=== PATIENT | male | born 1990 | race Hispanic/Latino ===

== ENCOUNTER 2022-10-27 08:27 | Emergency (ER) | payer OTHER, SELFPAY ==
[2022-10-27 08:43] VITALS: BP 139/82; PULSE 117; RESP 18; TEMP 37.6; O2SAT 97
--- NOTE | 2022-10-27 08:47 | ED.URI ---
HPI - URI/Sore Throat General Chief Complaint: Upper Respiratory Infection Stated Complaint: cold cough w/asthma Time Seen by Provider: 10/27/22 08:49 Source: patient and RN notes reviewed Mode of arrival: ambulatory Limitations: no limitations History of Present Illness HPI Narrative: 31-year-old male with history of asthma presented for complaint of sinus pressure/congestion, cough, onset 2 days. He endorses sick family members with fevers, but and she was illness. He denies shortness of breath, wheezing, nausea, vomiting, diarrhea, fevers or chills. He is taking multiple ysff-tbp-pxocjkh medications for symptoms. He has been vaccinated twice for COVID. MD elicited complaint: cough Related Data Allergies Allergy/AdvReac Type Severity Reaction Status Date / Time No Known Allergies Allergy Unverified 01/20/18 16:47 Review of Systems Review of Systems: per HPI Exam Narrative: GENERAL: Ill-appearing, nontoxic EYES: PERRLA, conjunctivae clear ENT: Mucous membranes moist. TMs pearly elizabeth with dull light reflex bilaterally; no tragal tenderness. CHEST: Clear to auscultation, breath sounds equal. No wheezing, rhonchi, rales, or stridor. No respiratory distress, speaks in full sentences. HEART: Regular rate and rhythm. No murmur heard. SKIN: Warm, dry, no rash. NEURO: Alert and oriented x3. PSYCH: Normal mood and affect Course Course Emergency Course: Patient is aware of diagnosis, understands and agrees to treatment plan. Anticipatory guidance given. Patient agrees to follow-up as directed and is aware of reasons to seek care at the emergency department. Portions of this record may have been created with voice recognition software Level of Care: Express Care Visit Vital Signs Vital signs: Vital Signs Temperature 99.6 F 10/27/22 08:43 Pulse Rate 117 H 10/27/22 08:43 Respiratory Rate 18 10/27/22 08:43 Blood Pressure 139/82 10/27/22 08:43 Pulse Oximetry 97 10/27/22 08:43 Oxygen Delivery Room Air 10/27/22 08:43 Temperature 99.6 F 10/27/22 08:43 Pulse Rate 117 H 10/27/22 08:43 Respiratory Rate 18 10/27/22 08:43 Blood Pressure 139/82 10/27/22 08:43 Pulse Oximetry 97 10/27/22 08:43 Oxygen Delivery Room Air 10/27/22 08:43 reviewed MDM - URI/Sore Throat MDM Narrative Medical decision making narrative: Covid result reviewed with pt and mother. Advised supportive measures and signs/symptoms to go to the ER. Pt is appropriate for outpt treatment and f/u. Differential Diagnosis Differential diagnosis: Likely upper respiratory infection, sinusitis and viral infection Discharge Plan Discharge Clinical Impression: Viral infection Patient Disposition: Home, Self-Care Condition: Stable Instructions: Viral Syndrome (ED) Additional Instructions: You should avoid crowds until you are fever free for 24 hours without the use of fever reducing medications, or the symptoms are improved Rest. Drink plenty of fluids. Tylenol 1000mg every 8 hours as needed for pain/fever Recommend Flonase spray and Zyrtec (or Claritin/Celia) for sinus pressure/congestion over the counter Cough syrup may cause drowsiness; avoid driving or take it at night time. Follow up with your primary care provider as needed in 1-2 weeks Go to the ER for worsening symptoms or concerns Follow-up/Referrals: Radha,MD Mario [Primary Care Provider] - Time of Disposition: 09:15
== END 2022-10-27 09:18 | disposition home or self-care (01) ==
PROVIDERS: Emergency Provider Nurse Practitioner Family; PCP Internal Medicine
DX: B34.9 Viral infection, unspecified (principal); Z20.822 Contact with and (suspected) exposure to COVID-19
CPT/HCPCS: 87426; 99203; C9803; G0463

== ENCOUNTER 2022-12-31 09:04 | Emergency (ER) | payer OTHER, SELFPAY ==
[2022-12-31 09:17] VITALS: BP 142/79; PULSE 104; RESP 18; TEMP 37.1; O2SAT 99
--- NOTE | 2022-12-31 09:19 | ED.URI ---
HPI - URI/Sore Throat General Chief Complaint: Upper Respiratory Infection Stated Complaint: Sore Throat Time Seen by Provider: 12/31/22 09:35 Source: patient and RN notes reviewed Mode of arrival: ambulatory Limitations: no limitations History of Present Illness HPI Narrative: 32-year-old male presents concern for source of this started this morning. Reports he was clearing his throat a lot last night. He denies taking any ycqf-oks-wsdqkac medications for his symptoms. He denies cough, fever, chills, aches, headache, stomachache. Reports his parents both have similar symptoms MD elicited complaint: sore throat Related Data Home Medications Medication Instructions Recorded Confirmed albuterol sulfate 90 mcg/actuation 2 puff inhalation Q4-6H PRN 10/27/22 10/27/22 aerosol inhaler Shortness Of Breath famotidine 20 mg tablet 20 mg PO BID 10/27/22 12/31/22 levothyroxine 125 mcg tablet 125 mcg PO DAILY 10/27/22 12/31/22 budesonide-formoterol HFA 80 80 puff inhalation BID PRN Wheezing 12/31/22 12/31/22 mcg-4.5 mcg/actuation aerosol inhaler (Symbicort) Allergies Allergy/AdvReac Type Severity Reaction Status Date / Time No Known Allergies Allergy Verified 12/31/22 09:24 Review of Systems Review of Systems: CONSTITUTIONAL: Reports malaise. Denies chills, sweats, or fever. EYES: Denies visual changes, redness, or discharge. ENT: Denies rhinorrhea, congestion, sinus pain, otalgia. Reports sore throat. CARDIOVASCULAR: Denies chest pain, palpitations, or edema. RESPIRATORY: Denies cough. Denies dyspnea. GASTROINTESTINAL: Denies abdominal pain, nausea, vomiting, diarrhea SKIN: Denies rash or itching. MUSCULOSKELETAL: Denies myalgia. NEUROLOGIC: Denies headache. All systems reviewed & are unremarkable except as noted in HPI and below PMFSH Comments At time of signature, agree with nursing past medical, surgical, social and family history. There is no relevant family history pertinent to the presenting complaint Exam Narrative: GENERAL: Well-appearing, well-nourished, and in no acute distress. HEAD: Normocephalic EYES: PERRLA, conjunctivae clear ENT: Nares clear, clear discharge. Mucous membranes moist. TM pearly elizabeth with dull light reflex bilaterally; no tragal tenderness. Oropharynx not erythematous without lesions. Tonsils enlarged and without exudate, no drooling, no hoarseness, no trismus, uvula midline. NECK: Supple. No lymphadenopathy CHEST: Clear to auscultation, breath sounds equal. No wheezing, rhonchi, rales, or stridor. No respiratory distress, speaks in full sentences. HEART: Regular rate and rhythm. No murmur heard. SKIN: Warm, dry, no rash. NEURO: Alert and oriented x3. PSYCH: Normal mood and affect Course Course Emergency Course: Patient is aware of diagnosis, understands and agrees to treatment plan. Anticipatory guidance given. Patient agrees to follow-up as directed and is aware of reasons to seek care at the emergency department. Portions of this record may have been created with voice recognition software Level of Care: Express Care Visit Vital Signs Vital signs: Vital Signs Temperature 98.7 F 12/31/22 09:17 Pulse Rate 104 H 12/31/22 09:17 Respiratory Rate 18 12/31/22 09:17 Blood Pressure 142/79 H 12/31/22 09:17 Pulse Oximetry 99 12/31/22 09:17 Oxygen Delivery Room Air 12/31/22 09:17 Temperature 98.7 F 12/31/22 09:17 Pulse Rate 104 H 12/31/22 09:17 Respiratory Rate 18 12/31/22 09:17 Blood Pressure 142/79 H 12/31/22 09:17 Pulse Oximetry 99 12/31/22 09:17 Oxygen Delivery Room Air 12/31/22 09:17 Reviewed. MDM - URI/Sore Throat MDM Narrative Medical decision making narrative: Differential diagnosis considered: [place] virus, strep pharyngitis, allergic rhinitis, upper respiratory tract infection, sinusitis, rhinosinusitis, nasopharyngitis. viral pharyngitis, otitis media, otitis externa, pneumonia, bronchitis, viral cough syndrome, viral syn
== END 2022-12-31 10:03 | disposition home or self-care (01) ==
PROVIDERS: Emergency Provider Nurse Practitioner
DX: J02.0 Streptococcal pharyngitis (principal); Z20.822 Contact with and (suspected) exposure to COVID-19; E78.00 Pure hypercholesterolemia, unspecified; J45.909 Unspecified asthma, uncomplicated; K21.9 Gastro-esophageal reflux disease without esophagitis; E03.9 Hypothyroidism, unspecified
CPT/HCPCS: 87426; 87880; 99213; C9803; G0463

== ENCOUNTER 2023-07-14 11:03 | Emergency (ER) | payer OTHER, SELFPAY ==
[2023-07-14 11:09] VITALS: BP 138/79; PULSE 94; RESP 16; TEMP 36.6; O2SAT 98
--- NOTE | 2023-07-14 11:46 | ED.UPPEXIN ---
HPI - Extremity Injury (Upper) General Chief Complaint: Extremity Injury, Upper Stated Complaint: Right Arm Pain Time Seen by Provider: 07/14/23 11:46 Source: patient and RN notes reviewed Mode of arrival: ambulatory Limitations: no limitations History of Present Illness HPI narrative: 32-year-old male presents with concern for right shoulder pain. Reports pain started Wednesday after he was carrying laundry on Wednesday. He reports little pain at rest, worsening pain with range of motion. He denies taking any deiq-asn-bqxwkqz medications for his symptoms. He denies decreased strength, sensation. Reports difficulty raising the arm above shoulder level. He denies redness, warmth, bruising, open skin MD complaint: injury to: right and shoulder Related Data Home Medications Medication Instructions Recorded Confirmed albuterol sulfate 90 mcg/actuation 2 puff inhalation Q4-6H PRN 10/27/22 07/14/23 aerosol inhaler Shortness Of Breath famotidine 20 mg tablet 20 mg PO BID 10/27/22 07/14/23 levothyroxine 125 mcg tablet 125 mcg PO DAILY 10/27/22 07/14/23 budesonide-formoterol HFA 80 80 puff inhalation BID PRN Wheezing 12/31/22 07/14/23 mcg-4.5 mcg/actuation aerosol inhaler (Symbicort) montelukast 10 mg tablet 10 mg PO QPM 07/14/23 07/14/23 Allergies Allergy/AdvReac Type Severity Reaction Status Date / Time No Known Allergies Allergy Verified 07/14/23 11:28 Review of Systems Review of Systems: CONSTITUTIONAL: Denies malaise, chills, sweats, or fever. SKIN: Denies rash or itching, open skin, laceration, abrasion, redness, warmth, swelling. MUSCULOSKELETAL: Reports right shoulder pain NEUROLOGIC: Denies numbness, weakness All systems reviewed & are unremarkable except as noted in HPI and below PMFSH Comments At time of signature, agree with nursing past medical, surgical, social and family history. There is no relevant family history pertinent to the presenting complaint Exam Narrative: GENERAL: Well-appearing, well-nourished, and in no acute distress. HEAD: Normocephalic, atraumatic. EYES: PERRLA, conjunctivae clear NECK: Supple. CHEST: Speaks in full sentences. No respiratory distress. HEART: Regular rate and rhythm. Normal and equal peripheral pulses. EXTREMITIES: Right shoulder has normal strength and sensation, limited range of motion with total abduction. No edema or ecchymosis. Normal sensation with sensitivity to light touch and pain. Joint tenderness. No open wounds, no skin tenting, no devitalized tissue or atrophy, no trophic changes, no obvious deformity, alignment normal, nearby joints and structures intact. Distal pulses palpable and equal bilaterally, skin warm, dry, pink. Capillary refill less than 3 seconds. SKIN: Warm, dry, no rash. NEURO: Alert and oriented x3. PSYCH: Normal mood and affect Course Course Emergency Course: Patient is aware of diagnosis, understands and agrees to treatment plan. Anticipatory guidance given. Patient agrees to follow-up as directed and is aware of reasons to seek care at the emergency department. Portions of this record may have been created with voice recognition software Level of Care: Express Care Visit Vital Signs Vital signs: Vital Signs Temperature 98 F 07/14/23 11:09 Pulse Rate 94 07/14/23 11:09 Respiratory Rate 16 07/14/23 11:09 Blood Pressure 138/79 07/14/23 11:09 Pulse Oximetry 98 07/14/23 11:09 Oxygen Delivery Room Air 07/14/23 11:09 Temperature 98 F 07/14/23 11:09 Pulse Rate 94 07/14/23 11:09 Respiratory Rate 16 07/14/23 11:09 Blood Pressure 138/79 07/14/23 11:09 Pulse Oximetry 98 07/14/23 11:09 Oxygen Delivery Room Air 07/14/23 11:09 Reviewed. MDM - Extremity Injury (Upper) MDM Narrative Medical decision making narrative: Patients pain is consistent with musculoskeletal etiology. No signs of neurological or vascular compromise on exam. Compartments and tissues are soft without signs of c
== END 2023-07-14 12:00 | disposition home or self-care (01) ==
PROVIDERS: Emergency Provider Nurse Practitioner; PCP Internal Medicine
DX: M25.511 Pain in right shoulder (principal); Z79.899 Other long term (current) drug therapy
CPT/HCPCS: 99213; G0463

== ENCOUNTER 2024-11-07 15:18 | Emergency (ER) | payer OTHER, SELFPAY ==
[2024-11-07 15:28] VITALS: BP 151/78; PULSE 89; RESP 20; TEMP 36.5; O2SAT 99
--- NOTE | 2024-11-07 15:38 | ED_ITS ---
HPI - URI/Sore Throat General Chief Complaint: Upper Respiratory Infection Stated Complaint: Cough Time Seen by Provider: 11/07/24 15:39 Source: patient and RN notes reviewed Mode of arrival: ambulatory Limitations: no limitations History of Present Illness HPI Narrative: 33-year-old male presents with concern for cough for 1-2 weeks. He denies nasal congestion, rhinorrhea, sore throat. Denies fever. He is taking cough medicine MD elicited complaint: cough Related Data Home Medications ?Medication ?Instructions ?Recorded ?Confirmed ?Last Taken ?Type albuterol sulfate 90 mcg/actuation 2 puff inhalation Q4-6H PRN 10/27/22 11/07/24 Unknown History aerosol inhaler Shortness Of Breath famotidine 20 mg tablet 20 mg PO BID 10/27/22 07/14/23 Unknown History levothyroxine 125 mcg tablet 125 mcg PO DAILY 10/27/22 11/07/24 Unknown History budesonide-formoterol HFA 80 80 puff inhalation BID PRN Wheezing 12/31/22 11/07/24 Unknown History mcg-4.5 mcg/actuation aerosol inhaler (Symbicort) montelukast 10 mg tablet 10 mg PO QPM 07/14/23 11/07/24 Unknown History atorvastatin 40 mg tablet mg 11/07/24 Unknown History ezetimibe 10 mg tablet mg 11/07/24 Unknown History Allergies Allergy/AdvReac Type Severity Reaction Status Date / Time No Known Allergies Allergy Verified 11/07/24 15:19 Review of Systems Review of Systems: CONSTITUTIONAL: Denies malaise, chills, sweats, or fever. EYES: Denies visual changes, redness, or discharge. ENT: Denies rhinorrhea, congestion, sinus pain, otalgia and sore throat. CARDIOVASCULAR: Denies chest pain, palpitations, or edema. RESPIRATORY: Reports cough. Denies dyspnea. GASTROINTESTINAL: Denies abdominal pain, nausea, vomiting, diarrhea SKIN: Denies rash or itching. MUSCULOSKELETAL: Denies myalgia. NEUROLOGIC: Denies headache. All systems reviewed & are unremarkable except as noted in HPI and below PMFSH Comments At time of signature, agree with nursing past medical, surgical, social and family history. There is no relevant family history pertinent to the presenting complaint Exam Narrative: GENERAL: Well-appearing, well-nourished, and in no acute distress. HEAD: Normocephalic EYES: PERRLA, conjunctivae clear ENT: Nares clear. Mucous membranes moist. TM pearly elizabeth with dull light reflex bilaterally; no tragal tenderness. Oropharynx not erythematous without lesions. Tonsils not enlarged and without exudate, no drooling, no hoarseness, no trismus, uvula midline. NECK: Supple. No lymphadenopathy CHEST: Clear to auscultation, breath sounds equal. No wheezing, rhonchi, rales, or stridor. No respiratory distress, speaks in full sentences. HEART: Regular rate and rhythm. No murmur heard. SKIN: Warm, dry, no rash. NEURO: Alert and oriented x3. PSYCH: Normal mood and affect Course Course Emergency Course: Patient is aware of diagnosis, understands and agrees to treatment plan. Anticipatory guidance given. Patient agrees to follow-up as directed and is aware of reasons to seek care at the emergency department. Portions of this record may have been created with voice recognition software Level of Care: Express Care Visit Vital Signs Vital signs: Vital Signs Temperature 97.7 F 11/07/24 15:28 Pulse Rate 89 11/07/24 15:28 Respiratory Rate 20 11/07/24 15:28 Blood Pressure 151/78 H 11/07/24 15:28 Pulse Oximetry 99 11/07/24 15:28 Oxygen Delivery Room Air 11/07/24 15:28 Temperature 97.7 F 11/07/24 15:28 Pulse Rate 89 11/07/24 15:28 Respiratory Rate 20 11/07/24 15:28 Blood Pressure 151/78 H 11/07/24 15:28 Pulse Oximetry 99 11/07/24 15:28 Oxygen Delivery Room Air 11/07/24 15:28 Reviewed. MDM - URI/Sore Throat MDM Narrative Medical decision making narrative: Differential diagnosis considered: [place] virus, strep pharyngitis, allergic rhinitis, upper respiratory tract infection, sinusitis, rhinosinusitis, nasopharyngitis. viral pharyngitis, otitis media, otitis externa, pneumonia, bronchitis, viral cough syndrome, viral syndrome, and influenza. Exam findings show no acute concerns or changes; patient is non-toxic appearing and is in no distress. Patient is appropriate for outpatient treatment and follow-up. Lab Data Attestation: I reviewed the patient's lab results. Critical Care Time Critical Care Time Critical Care Time: No Discharge Plan Discharge Clinical Impression: Lower respiratory tract infection Patient Disposition: Home, Self-Care Condition: Stable Instructions: Antibiotic Form, Acute Cough (ED) Additional Instructions: 1) Please follow-up with your primary care doctor in the next 1-2 days. 2) If you have any worsening of symptoms or any other urgent concerns please go to the ER. 3) Please take medications as prescribed and continue taking your home medications as usual. 4) Please read and follow information included in discharge instructions. Patient Language: Divehi Prescriptions: New azithromycin [Zithromax Z-Gianfranco] 250 mg tablet See Rx Instructions .ROUTE .COMPLEX Qty: 6 0RF Rx Instructions: take 500 mg today (day 1), then 250 mg for 4 days (days 2-5) methylprednisolone [Medrol (Gianfranco)] 4 mg tablets,dose pack See Rx Instructions .ROUTE .COMPLEX Qty: 21 0RF Rx Instructions: orally per package directions No Action albuterol sulfate 90 mcg/actuation HFA aerosol inhaler 2 puff INHALATION Q4-6H PRN (Reason: Shortness Of Breath) famotidine 20 mg tablet 20 mg PO BID levothyroxine 125 mcg tablet 125 mcg PO DAILY montelukast 10 mg tablet 10 mg PO QPM ibuprofen 600 mg tablet 600 mg PO QID PRN (Reason: pain) Qty: 30 0RF atorvastatin 40 mg tablet ezetimibe 10 mg tablet budesonide-formoterol [Symbicort] 80-4.5 mcg/actuation HFA aerosol inhaler 80 puff INHALATION BID PRN (Reason: Wheezing) Follow-up/Referrals: UNKNOWN,DOCTOR [Primary Care Provider] - Stand Alone Forms: Work/School Release IP Time of Disposition: 15:45
== END 2024-11-07 15:50 | disposition home or self-care (01) ==
PROVIDERS: Emergency Provider Nurse Practitioner
DX: J22 Unspecified acute lower respiratory infection (principal); E78.00 Pure hypercholesterolemia, unspecified; J45.909 Unspecified asthma, uncomplicated; K21.9 Gastro-esophageal reflux disease without esophagitis; E03.9 Hypothyroidism, unspecified
CPT/HCPCS: 99213; G0463

== ENCOUNTER 2025-10-16 17:12 | Emergency (ER) | payer OTHER, SELFPAY ==
--- OUTSIDE RECORDS SUMMARY | 2025-10-16 17:18 | XMS_ITS | Clinical Summary ---
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 Active ALBUTEROL IN take by inhalation . Active Social History Tobacco Use Types Packs/Day Years Used Date Smoking Tobacco: Never Smokeless Tobacco: Never Alcohol Use Standard Drinks/Week Comments Never 0 (1 standard drink = 0.6 oz pur e alcohol) AUDIT-C Answer Date Recorded Frequency of Alcohol Consumption Never 06/24/2019 Average Number of Drinks Not on file 019 Frequency of Binge Drinking Not on file 05/27 Sex and Gender Information Value Date Recorded Sex Assigned at Not on file Legal Sex Male 11:35 PM CDT Gender Identity Not on file Sexual Orientation Not on file Last Filed Vital Signs Vital Sign Reading Time Taken Comments Blood Pressure 145/94 06/24/2019 10:45 AM CDT Pulse 98 06/24/2019 10:45 AM CDT Temperature 36.6 C (97.8 F) 06/24/2019 9:07 AM CDT Respiratory Rate 18 06/24/2019 10:45 AM CDT Oxygen Saturation 96% 06/24/2019 10:45 AM CDT Inhaled Oxygen Concentration - - Weight 113.4 kg (250 lb) 06/24/2019 9:07 AM CDT Height 172.7 cm (5' 8) 06/24/2019 9:07 AM CDT Body Mass Index 38.01 06/24/2019 9:07 AM CDT Plan of Treatment Health Maintenance Due Date Last Done Comments Hepatitis C Virus (HCV) Screening 1990 Influenza Immunization (#1) 2025 10/0 10/2017, 07/24/2018, 09/01/2017, Additional history exists SARS-COV-2 Immunization ( season) 2025 07/07/2021, 06/09/2021 Respiratory Syncytial Virus (RSV) Immunization (Adult) (1 - 1-dose 75+ series) 2065 Hepatitis B Immunization Completed 001, 05/28/1998, 05/29/1996 Varicella Immunization Completed 07/08/2001, 2000 TdaP Immunization Completed 03/29/2007 DTaP/Tdap/Td Immunization Discontinued 2017, 03/29/2007, 02/29/1996, Additional history exists Human Papillomavirus (HPV) Immunization (No Doses Required) Completed Meningococcal Immunization (ACWY) Aged Out No longer eligible based on patient's age to complete this topic Pneumococcal Immunization Combined Aged Out No longer eligible based on patient's age to complete this topic Rotavirus Immunization Aged Out No lo nger eligible based on patient's age to complete this topic Insurance MEDICAID [employer] Care Teams Dry Wall Finisher Relationship Specialty Start Date End Date Mario Garcia MD [address] [place] [address] PCP - General Internal Medicine 06/24/19
[2025-10-16 17:25] VITALS: BP 141/86; PULSE 96; RESP 20; TEMP 36.6; O2SAT 99
[2025-10-16 18:00] LABS: EDCOVIDSCREEN Negative (Negative); EDINFLUASCREEN Negative (Negative); EDINFLUBSCREEN Negative (Negative)
--- NOTE | 2025-10-16 18:08 | ED.URI ---
HPI - URI/Sore Throat General Chief Complaint: Upper Respiratory Infection Stated Complaint: cold symptoms Time Seen by Provider: 10/16/25 17:50 Source: patient and RN notes reviewed Mode of arrival: ambulatory Limitations: no limitations History of Present Illness HPI Narrative: 34-year-old male patient presents Express Care complaining of cough, congestion, runny nose for 3 days. Patient has any fevers advice, chills, chest pain breathing problems, vomiting, abdominal pain, diarrhea, or any other symptoms. Patient been taking DayQuil and NyQuil to help with symptoms. Patient reports a history of asthma. Related Data Home Medications ?Medication ?Instructions ?Recorded ?Confirmed ?Last Taken ?Type albuterol sulfate 90 mcg/actuation 2 puff inhalation Q4-6H PRN 10/27/22 11/07/24 Unknown History aerosol inhaler Shortness Of Breath famotidine 20 mg tablet 20 mg PO BID 10/27/22 07/14/23 Unknown History levothyroxine 125 mcg tablet 125 mcg PO DAILY 10/27/22 11/07/24 Unknown History budesonide-formoterol HFA 80 80 puff inhalation BID PRN Wheezing 12/31/22 11/07/24 Unknown History mcg-4.5 mcg/actuation aerosol inhaler (Symbicort) montelukast 10 mg tablet 10 mg PO QPM 07/14/23 11/07/24 Unknown History atorvastatin 40 mg tablet mg 11/07/24 Unknown History ezetimibe 10 mg tablet mg 11/07/24 Unknown History Allergies Allergy/AdvReac Type Severity Reaction Status Date / Time No Known Allergies Allergy Verified 10/16/25 17:31 Review of Systems Review of Systems: CONSTITUTIONAL: Denies fever, chills, or sweats. EYES: Denies visual changes, redness, or discharge. ENT: Positive for rhinorrhea and congestion. Negative for sore throat, or otalgia. CARDIOVASCULAR: Denies chest pain, palpitations, or edema. RESPIRATORY: Positive for cough. Negative for wheezing or dYspnea. GASTROINTESTINAL: Denies abdominal pain, nausea, vomiting, or diarrhea. GENITOURINARY: Denies dysuria or hematuria. SKIN: Denies rash or itching. MUSCULOSKELETAL: Denies back pain, joint pain, or myalgia. NEUROLOGIC: Denies headache, numbness, or weakness. PSYCHIATRIC: Denies anxiety or depression. All other systems reviewed are negative, except as documented in HPI. PMFSH Comments At the time of my signature, I reviewed and agree with the nursing past medical, surgical, social, and family history. There is no relevant family history pertinent to the patient complaint. Exam Narrative: GENERAL: This is a well-nourished, well-developed adult, in no apparent distress. They are non ill-appearing, nontoxic appearing. HEAD: normocephalic, atraumatic. EYES: Sclera clear/white. Conjunctiva normal. Vision is grossly intact. Extraocular movements intact EARS: External ears normal, auditory canals clear and without drainage, TMs normal without perforation. Hearing grossly intact. NOSE: External nose normal with no obvious nasal discharge, nasal turbinates erythematous with rhinorrhea. THROAT: Mucous membranes moist, posterior pharynx erythematous. PND present. Uvula midline. NECK: Neck supple, non-tender without lymphadenopathy, masses or thyromegaly. CARDIOVASCULAR: Regular rate and rhythm without murmurs, gallops, or rubs. RESPIRATORY: Clear to auscultation. Breath sounds equal bilaterally. No wheezes, rales, or rhonchi. SKIN: warm, Dry, intact with no suspicious lesions or rash, good texture and turgor. NEURO: awake, alert, and oriented to person, place and time. There were no obvious focal neurologic abnormalities. EXTREMITIES: No joint tenderness, effusion, or edema noted. BACK: Nontender without deformity. Course Course Level of Care: Express Care Visit Vital Signs Vital signs: Vital Signs Temperature 97.9 F 10/16/25 17: Pulse Rate 96 10/16/25 17: Respiratory Rate 20 10/16/25 17: Blood Pressure 141/86 H 10/16/25 17:25 Pulse Oximetry 99 10/16/25 17:25 Oxygen Delivery Room Air 10/16/25 17:25 Temperature 97.9 F 10/16/25 17: Pulse Rate 96 10/16/25 17:25 Respiratory Rate 20 10/16/25 17: Blood Pressure 141/86 H 10/16/25 17:25 Pulse Oximetry 99 10/16/25 17:25 Oxygen Delivery Room Air 10/16/25 17:25 [facility] MDM Narrative Medical decision making narrative: Rapid COVID and flu were negative. Patient likely has a viral upper respiratory infection. Discussed supportive care. Discussed physical exam findings. Advised supportive measures and signs/symptoms to go to the ER. Pt is appropriate for outpt treatment and f/u. Differential Diagnosis Differential Diagnosis: Differential diagnostic considerations for upper respiratory infection include upper respiratory infection, croup, otitis media, sinusitis, viral infection, bronchitis, influenza, pharyngitis, strep, uvulitis. Lab Data MDM Lab Attestation statement: I personally reviewed the patient's lab results. Labs: Lab Results 10/16/25 Range/Units 17:58 POC Influenza A Ag Negative (Negative) POC Influenza B Ag Negative (Negative) POC SARS CoV-2 Ag Negative (Negative) Critical Care Time Critical Care Time Critical Care Time: No Discharge Plan Discharge Clinical Impression: Upper respiratory infection Qualifiers: URI type: acute nasopharyngitis (common cold) Qualified Code(s): J00 - Acute nasopharyngitis [common cold] Patient Disposition: Home Condition: Stable Instructions: Antibiotic Form, Cold Symptoms (ED) Additional Instructions: Your rapid COVID and flu were negative today. Viral illness may last between 7-10 days; antibiotics do not cure viral illness and are NOT recommended at this time. Recommend antihistamine such as Zyrtec for congestion. Tsp of warm honey at night may help with the cough. May use azelastine nasal spray as needed for congestion. Follow Instructions on the bottle. Also, recommend symptomatic treatment includes: rest, fluids, and increase humidity of the air at home. Tylenol or Motrin as needed for pain or fevers. Follow instructions on the bottle. If you take DayQuil or NyQuil do not take any additional Tylenol as these medications already contains Tylenol in it. Please schedule a follow-up visit with your personal physician for further evaluation and treatment within 3-5days Go to the ER if he develops chest pain, difficulty breathing, wheezing, vomiting, weakness, confusion, or any serious concerns. Patient Language: [place] Prescriptions: No Action albuterol sulfate 90 mcg/actuation HFA aerosol inhaler 2 puff INHALATION Q4-6H PRN (Reason: Shortness Of Breath) famotidine 20 mg tablet 20 mg PO BID levothyroxine 125 mcg tablet 125 mcg PO DAILY montelukast 10 mg tablet 10 mg PO QPM atorvastatin 40 mg tablet ezetimibe 10 mg tablet budesonide-formoterol [Symbicort] 80-4.5 mcg/actuation HFA aerosol inhaler 80 puff INHALATION BID PRN (Reason: Wheezing) Follow-up/Referrals: Zoë,Kristen Oakes APRN [Primary Care Provider, Unknown] Time of Disposition: 18:05
== END 2025-10-16 18:12 | disposition home or self-care (01) ==
PROVIDERS: PCP Nurse Practitioner Family
DX: J00 Acute nasopharyngitis [common cold] (principal); Z20.822 Contact with and (suspected) exposure to COVID-19; J45.909 Unspecified asthma, uncomplicated
CPT/HCPCS: 87426; 87804; 99212; G0463